=== PATIENT | male | born 1990 | race Caucasian/White ===

== ENCOUNTER 2017-10-21 00:56 | Emergency (ER) | payer SELFPAY ==
[2017-10-21 01:07] VITALS: BP 156/94; PULSE 81; RESP 14; TEMP 37.1; O2SAT 99; BMI 33.1
--- NOTE | 2017-10-21 01:42 | ED_ITS ---
HPI - Dental/Oral General Chief complaint: Dental/Oral Stated complaint: SEVERE DENTAL PAIN Time Seen by Provider: 10/21/17 00:58 Source: patient Mode of arrival: ambulatory Limitations: no limitations History of Present Illness HPI Narrative: 27-year-old male here for evaluation approximately 1 month of dental pain. States he has not seen a dentist for very long time. I saw a family member of his here in the emergency department 2 days ago with dental pain and provided a temporary covering which resolved her pain so he came into the emergency department to see if I could help him. He has not tried anything at home. He states that he has been trying to get in to see a dentist. No fevers. Right lower jaw pain MD Complaint: tooth pain Location: Tooth # (31) Onset (ago): month(s) (1) Duration: constant Severity: severe Relieving factors: nothing Exacerbating factors: nothing Context: history of dental caries and poor dental care Treatment prior to arrival: none Related Data Previous Rx's Medication Instructions Recorded clindamycin HCl 300 mg PO QID 7 Days #28 cap 10/21/17 hydrocodone-acetaminophen [[place]] 1 tab PO Q6H PRN #10 tab 10/21/17 Allergies Allergy/AdvReac Type Severity Reaction Status Date / Time No Known Drug Allergies Allergy Verified 10/21/17 01:45 Review of Systems Constitutional Denies chills, Denies fever(s), Reports headache(s), Denies lethargy and Denies weakness ENT Ears, Nose, Mouth, and Throat: Reports dental pain, Denies dizziness, Denies dry mouth, Denies otalgia, Reports facial pain, Reports headache(s), Denies hearing loss, Denies neck pain, Denies sore throat, Denies throat swelling and Denies tongue swelling Cardiovascular Denies chest pain and Denies dyspnea Respiratory Denies cough and Denies dyspnea Gastrointestinal Gastrointestinal: Denies nausea and Denies vomiting Musculoskeletal Denies neck pain Integumentary/Breasts Denies pruritus, Denies erythema, Denies rash and Denies wounds Neurologic Denies dizziness, Reports headache(s) and Denies weakness Hematologic/Lymphatic Denies easy bruising Allergic/Immunologic Denies throat swelling and Denies tongue swelling PFSH Social History Smoking Status: Current every day smoker Exam Initial Vital Signs Initial Vital Signs: Vital Signs Temperature 98.7 F 10/21/17 01:07 Pulse Rate 81 10/21/17 01:07 Respiratory Rate 14 10/21/17 01:07 Blood Pressure 156/94 H 10/21/17 01:07 Pulse Oximetry 99 10/21/17 01:07 Const General: cooperative and well developed Nutritional Appearance: well nourished Orientation: alert, awake, oriented x3 and not confused HENIA Head: normal to inspection, normocephalic and atraumatic Nose: external nose normal Face and sinus: normal facial exam Mouth: oral mucosae normal, oropharynx normal, moist mucous membranes, No drooling, No tongue abnormal, No abnormal TMJ and No trismus Teeth and gingiva: caries, poor dentition and other (Tooth number 31 cracked with the posterior portion of the missing has surrounding redness of the gum) Eyes General: appearance normal, both eyes and all related structures Eyelids: eyelids normal Conjunctivae: conjunctivae normal Sclera: sclerae normal Resp Effort & Inspection: normal respiratory effort Skin General: no rashes or lesions noted, No jaundice and No petechiae Neuro General: alert, oriented x3, gait normal and no focal motor deficits Speech: speech normal Course Vital Signs - 8 hr 10/21/17 01:07 Temperature 98.7 F Pulse Rate 81 Respiratory Rate 14 Blood Pressure 156/94 H Pulse Oximetry 99 MDM - Dental/Oral MDM Narrative Medical decision making narrative: Patient with poor dentition. No definitive abscess seen today that could be drained here in the emergency department. Did provide a inferior alveolar block on the right side with 3 cc of 1% lidocaine without epinephrine. Temporary covering placed over the cracked tooth with dental paste from the dental box. Patient reports a great improvement of his symptoms afterwards. He was informed that this was only a temporary solution and that he did need to get in to see a dentist for definitive treatment. He expressed understanding. Will send home with antibiotics and pain medication. He was informed that the emergency department would not continue to provide pain medication for him for this situation and that he did need to see a dentist. He expressed understanding. Discharge Plan Departure Patient Disposition: Home, Self-Care Clinical Impression: Fracture of tooth, Dental caries Instructions: DI for Tooth Decay, DI for Dental Pain Activity Restrictions/Additional Instructions: You do need to see a dentist regarding your issues with your teeth. Return to the emergency department for any new symptoms Prescriptions: New clindamycin HCl 300 mg capsule 300 mg PO QID 7 Days Qty: 28 RF: 0 hydrocodone-acetaminophen [[place]] 5-325 mg tablet 1 tab PO Q6H PRN (Reason: pain) Qty: 10 RF: 0
== END 2017-10-21 01:50 | disposition home or self-care (01) ==
PROVIDERS: Emergency Provider Emergency Medicine
DX: S02.5XXA Fracture of tooth (traumatic), initial encounter for closed fracture (principal); K02.9 Dental caries, unspecified
CPT/HCPCS: 99282